=== PATIENT | female | born 1985 | race Two or more races ===

== ENCOUNTER 2020-10-16 10:41 | Outpatient (CLI) | payer MEDICAID | END 2020-10-16 23:59 | disposition home or self-care (01) | LOC: LAB 10:41 | PROVIDERS: ATTEND Specialist | DX: Z01.812 Encounter for preprocedural laboratory examination (principal); Z20.828 Contact with and (suspected) exposure to other viral communicable diseases | CPT/HCPCS: 87426; C9803 ×2; U0003 ==

== ENCOUNTER 2020-10-20 06:18 | Day surgery (SDC) | payer MEDICAID ==
[2020-10-20 07:21] LABS: BASOPHILS % (AUTO) 0.7 % (0.0-2.0); EOSINOPHILS % (AUTO) 4.9 % (0.0-6.0); HEMATOCRIT 40 % (33-45); LYMPHOCYTES % (AUTO) 17.5 % (20.0-44.0); MEAN CORPUSCULAR HGB CONC 35 g/dl (31.0-36.0); MEAN CORPUSCULAR VOLUME 91 fL (82-100); MONOCYTES # (AUTO) 0.4 /CMM (0.1-1.30); MONOCYTES % (AUTO) 6.5 % (2.0-12.0); NEUTROPHILS # (AUTO) 4.1 /CMM (1.8-8.9); NEUTROPHILS % (AUTO) 70.4 % (43.0-81.0); PLATELET COUNT (AUTO) 250 /CMM (150-450); RED BLOOD CELL COUNT(AUTO) 4.45 MIL/uL (4.0-5.2); WHITE BLOOD COUNT (AUTO) 5.8 K/uL (4.3-11.0)
[2020-10-20 07:23] LABS: ALBUMIN 3.4 g/dL (3.4-5.0); BILIRUBIN,TOTAL 0.3 mg/dL (0.2-1.0); CALCIUM, SERUM 8.7 mg/dL (8.5-10.1); CREATININE 0.8 mg/dL (0.6-1.3); POTASSIUM 3.8 mmol/L (3.5-5.1); TOTAL PROTEIN, SERUM 7.1 g/dL (6.4-8.2)
[2020-10-20] MEDS ORDERED: GABAPENTIN 300 MG CAPSULE ONE (07:32)
[2020-10-20] MEDS ORDERED: CELECOXIB 100 MG CAPSULE ONE (07:33)
[2020-10-20] MEDS ORDERED: ACETAMINOPHEN 325 MG TABLET ONE (07:33)
[2020-10-20] MEDS ORDERED: oxyCODONE HCL SR 20MG TAB.SR.12H PO ONE (07:34)
[2020-10-20] MEDS ORDERED: BUPIVACAINE 0.5 % PF 150 MG/30 ML VIAL ONE (07:35)
[2020-10-20] MEDS ORDERED: HEMOSTATIC MATRIX 8 ML 1 EACH PAD MC ONE (07:35)
[2020-10-20] MEDS ORDERED: IOHEXOL 0 ML IV ONE (07:35)
[2020-10-20] MEDS ORDERED: CEFAZOLIN 1 GM ONE (07:35)
[2020-10-20] MEDS ORDERED: LIDOCAINE 1%-EPI 1:100,000 20 ML VIAL ONE (07:36)
[2020-10-20] MEDS ORDERED: KETOROLAC TROMETHAMINE INJ 30 MG/ML VIAL ONE (07:36)
[2020-10-20 08:01] LABS: BILIRUBIN,URINE NEGATIVE (NEGATIVE); COLOR,URINE YELLOW (YELLOW); LEUKOCYTE ESTERASE ,URINE TRACE (NEGATIVE); NITRITE, URINE NEGATIVE (NEGATIVE); PH,URINE 5.5 (5.0-8.0); PROTEIN,URINE NEGATIVE (NEGATIVE); UGLUCOSE NEGATIVE (NEGATIVE); UROBILINOGEN,URINE 0.2 EU/dL (0.2)
[2020-10-20 08:52] LABS: BACTERIA,URINE Few /HPF (None Seen); SQUAMOUS EPITHELIAL CELL,UR Few /HPF (None Seen)
[2020-10-20] MEDS ORDERED: methylPREDNISolone ACETATE 80 MG/ML VIAL ONE (10:05)
[2020-10-20] MEDS ORDERED: METHYLENE BLUE 10 ML VIAL ONE (10:07)
[2020-10-20] MEDS ORDERED: MIDAZOLAM HCL 2 MG/2ML VIAL ONE (10:17)
[2020-10-20] MEDS ORDERED: HYDROMORPHONE INJ 2 MG/ML DISP.SYRIN ONE (10:18)
[2020-10-20] MEDS ORDERED: FENTANYL PF 100MCG/2ML AMPUL ONE ×2 (10:18)
[2020-10-20] MEDS ORDERED: DEXAMETHASONE SOD PHOSPHATE 10 MG/ML VIAL ONE (10:19)
== END 2020-10-20 15:00 | disposition home or self-care (01) ==
LOC: DS 06:18
PROVIDERS: ATTEND Specialist
DX: M51.17 Intervertebral disc disorders with radiculopathy, lumbosacral region (principal); E66.01 Morbid (severe) obesity due to excess calories; J45.909 Unspecified asthma, uncomplicated
CPT/HCPCS: 36415; 62323; 63030; 71045; 80053; 81001; 84703; 85025; 85610; 85730; 86850; 88304; 88311; 93005; A6209 ×2; A6402; J0690 ×2; J1040; J1100 ×2; J1170; J1885; J2250; J2704; J2765; J3010 ×2; J3490 ×4; Q9968; 72020-TC; Q9967